=== PATIENT | female | born 1990 | race Caucasian/White ===

== ENCOUNTER 2018-09-24 21:53 | Emergency (ER) | payer SELFPAY ==
[2018-09-24 22:16] VITALS: BP 132/68
--- NOTE | 2018-09-24 22:17 | NUR ---
PT TO CT, LAW ENFORCEMENT ACCOMPANYING PT
== END 2018-09-24 23:01 | disposition home or self-care (01) ==
LOC: ED 22:45
DX: S06.0X0A Concussion without loss of consciousness, initial encounter (principal); S16.1XXA Strain of muscle, fascia and tendon at neck level, initial encounter; F10.10 Alcohol abuse, uncomplicated; V47.5XXA Car driver injured in collision with fixed or stationary object in traffic accident, initial encounter; Y93.89 Activity, other specified; Y92.89 Other specified places as the place of occurrence of the external cause; Y99.8 Other external cause status; Y90.9 Presence of alcohol in blood, level not specified
CPT/HCPCS: 70450; 72125; 99284